=== PATIENT | female | born 1985 | race Caucasian/White ===

== ENCOUNTER 2017-02-01 23:30 | Emergency (ER) | payer BC ==
[2017-02-02 00:30] VITALS: TEMP 97.8
[2017-02-02] MEDS ORDERED: Aluminum Hydroxide/Magnesium Hydroxide Susp (30 mL) PO STA (00:47)
[2017-02-02] MEDS ORDERED: Aluminum Hydroxide/Magnesium Hydroxide Susp (30 mL) ONE (00:51)
[2017-02-02] MEDS ORDERED: Bacitracin 500 Units/gm Oint Foilpak UD ONE (02:32)
[2017-02-02 02:40] VITALS: BP 124/75; PULSE 75; RESP 18; O2SAT 99
--- NOTE | 2017-02-02 04:21 | C.PDOC ---
History Of Present Illness Patient is a 31 year old female who presents to the ER with a complaint of right ankle pain and scraped elbows; SP trip and fall. Patient is able to ambulate with a limp. Patient is also 20+ weeks and was seen by OB before being seen in ED. Denies abdominal pain or other injury. Chief Complaint (Nursing): Lower Extremity Problem/Injury History Per: Patient History/Exam Limitations: no limitations Onset/Duration Of Symptoms: Hrs Current Symptoms Are (Timing): Still Present Recent travel outside of the [place]: No - Ankle/Foot Description Of Injury: Fell Past Medical History Reviewed: Historical Data, Nursing Documentation, Vital Signs Vital Signs: Last Vital Signs Temp 97.8 F 02/02/17 00:26 Pulse 75 02/02/17 02:38 Resp 18 02/02/17 02:38 BP 124/75 02/02/17 02:38 Pulse Ox 99 02/02/17 04:32 - Medical History PMH: No Chronic Diseases Surgical History: No Surg Hx Family History: States: Unknown Family Hx - Social History Hx Alcohol Use: No Hx Substance Use: No - Immunization History Hx Tetanus Toxoid Vaccination: No Hx Influenza Vaccination: No Hx Pneumococcal Vaccination: No Review Of Systems Gastrointestinal: Negative for: Abdominal Pain Musculoskeletal: Positive for: Foot Pain (Right ankle) Physical Exam - Physical Exam Appears: Non-toxic, No Acute Distress Skin: Normal Color, Warm, Dry Head: Atraumatic, Normacephalic Oral Mucosa: Moist Chest: Symmetrical, No Tenderness Cardiovascular: Rhythm Regular, No Murmur Respiratory: Normal Breath Sounds, No Rales, No Rhonchi, No Wheezing Gastrointestinal/Abdominal: Soft, No Tenderness, Other (Gravid) Extremity: Tenderness (Lateral malleolus), Capillary Refill (Good), Swelling ( Lateral malleolus), Other (Abrasions to bilateral elbows) Neurological/Psych: Oriented x3, Normal Speech, Normal Cognition ED Course And Treatment O2 Sat by Pulse Oximetry: 99 (Room air) Pulse Ox Interpretation: Normal - Other Rad Right ankle x-ray X-Ray: Interpreted by Me, Viewed By Me Interpretation: No acute fractures or dislocation. Progress Note: Maalox administered. Right ankle x-ray ordered. Disposition - Disposition Referrals: Quiana Root, [Non-Staff] - Disposition: HOME/ ROUTINE Disposition Time: 01:20 Condition: GOOD Additional Instructions: Thank you for letting us take care of you today. Your provider was Dr. Lee. You were treated for ankle sprain. The emergency medical care you received today was directed at your acute symptoms. If you were prescribed any medication, please fill it and take as directed. It may take several days for your symptoms to resolve. Return to the Emergency Department if your symptoms worsen, do not improve, or if you have any other problems. Please contact your doctor or call one of the physicians/clinics you have been referred to that are listed on the Patient Visit Information form that is included in your discharge packet. Bring any paperwork you were given at discharge with you along with any medications you are taking to your follow up visit. Our treatment cannot replace ongoing medical care by a primary care provider (PCP) outside of the emergency department. Thank you for allowing the [facility] team to be part of your care today. Apply ice, elevate and compression to area. Follow up with your doctor in 4-5 days for re-evaluation. Instructions: Ankle Sprain (ED) - Clinical Impression Clinical Impression: Ankle sprain - Scribe Statement The provider has reviewed the documentation as recorded by the Scribe Wesley Weiss All medical record entries made by the Karenibrajat were at my direction and personally dictated by me. I have reviewed the chart and agree that the record accurately reflects my personal performance of the history, physical exam, medical decision making, and the department course for this patient. I have also personally directed, reviewed, and agree with the discharge instructions and disposition.
--- NOTE | 2017-02-02 10:38 | RAD ---
PROCEDURE: Right Ankle Radiographs. HISTORY: r/o fx COMPARISON: None FINDINGS: BONES: Bone alignment and mineralization are normal. There is no acute fracture or bone destruction. JOINTS: Normal. No osteoarthritis. Ankle mortise maintained. Talar dome intact SOFT TISSUES: There is moderate lateral soft tissue swelling. OTHER FINDINGS: None. IMPRESSION: No acute fracture or dislocation. Moderate lateral soft tissue swelling.
== END 2017-02-02 02:40 | disposition home or self-care (01) ==
LOC: C.ER 23:30 → C.EROB 23:30 → C.ER 02-02 02:40
DX: S93.401A Sprain of unspecified ligament of right ankle, initial encounter (principal); W01.0XXA Fall on same level from slipping, tripping and stumbling without subsequent striking against object, initial encounter